=== PATIENT | female | born 2000 | race Caucasian/White ===

== ENCOUNTER 2021-11-14 22:01 | Emergency (ER) | payer BC ==
[~2021-11-14] VITALS: Ht 172.7 cm; Wt 86.4 kg
[2021-11-14 22:06] VITALS: TEMP 97.2
[2021-11-14 23:33] VITALS: BP 104/47; PULSE 96
== END 2021-11-14 23:33 | disposition home or self-care (01) ==
LOC: COL.ER 22:01
DX: S90.32XA Contusion of left foot, initial encounter (principal); W10.8XXA Fall (on) (from) other stairs and steps, initial encounter